=== PATIENT | female | born 1980 | race Caucasian/White ===

== ENCOUNTER 2018-08-06 15:44 | Emergency (ER) | payer MEDICAID ==
[~2018-08-06] VITALS: Wt 55.3 kg
[2018-08-06 15:47] VITALS: BP 125/79; PULSE 78; RESP 18
[2018-08-06] MEDS ORDERED: DOXY100T21 PO (16:12)
[2018-08-06] MEDS ORDERED: IBUP-1542 PO (16:14)
--- NOTE | 2018-08-06 16:18 | ERD ---
ER Documentation Chief Complaint Chief Complaint mid abd+ pelvic pain rad to low back x1d. denies dysuria, no NVD HPI 38-year-old female presents with 1 day history of abdominal pain. She has various pains of different durations in different areas of her abdomen. She has a history of intermittent right upper quadrant abdominal pain with a history of gallstones. She has no fevers, vomiting and denies any significant right upper quadrant abdominal pain now. She has pain with palpable swelling in her umbilicus. She also has some swelling around her scar from a previous or tubal ligation. She denies any vomiting, diarrhea, fevers, additional symptoms. ROS All systems reviewed and are negative except as per history of present illness. Medications Home Meds Active Scripts Ibuprofen* (Motrin*) 600 Mg Tab, 600 MG PO Q6, #20 TAB Prov:MARY BOWSER MD 08/06/18 Doxycycline Monohydrate* (Doxycycline Monohydrate*) 100 Mg Tablet, 100 MG PO BID for 10 Days, TAB Prov:MARY BOWSER MD 08/06/18 PMhx/Soc Medical and Surgical Hx: pt denies Medical Hx Hx Alcohol Use: No Hx Substance Use: No Hx Tobacco Use: No Smoking Status: Never smoker FmHx Family History: No diabetes, No coronary disease, No other Physical Exam Vitals Vital Signs Date Temp Pulse Resp B/P (MAP) Pulse Ox O2 O2 Flow FiO2 Time Delivery Rate 08/06/18 97.5 78 18 125/79 99 15:47 (94) Physical Exam Const: No acute distress Head: Atraumatic Eyes: Normal Conjunctiva ENT: Normal External Ears, Nose and Mouth. Neck: Full range of motion. No meningismus. Resp: Clear to auscultation bilaterally Cardio: Regular rate and rhythm, no murmurs Abd: Soft, non tender, non distended. Normal bowel sounds. There is a small reducible umbilical hernia without erythema, warmth no signs of strangulation or incarceration. On the lower abdomen there is a 1 cm area of mild swelling with appears to be inflamed. There is no appreciable fluctuance, induration or discharge. There is no deep abdominal tenderness, tenderness at McBurney's point, significant Ellis sign, rebound, masses. Skin: No petechiae or rashes Back: No midline or flank tenderness Ext: No cyanosis, or edema Neur: Awake and alert Psych: Normal Mood and Affect Results 24 hrs Current Medications Medications Dose Sig/Rogelio Start Time Status Last (Trade) Ordered Route PRN Stop Time Admin Dose Reason Admin Ibuprofen 600 mg ONCE ONCE 08/06/18 (Motrin) PO 16:30 08/06/18 16:31 Procedures/MDM Patient presents with signs and symptoms of biliary colic which is currently stable and resolved. She has also has signs of a nonincarcerated nonstimulated umbilical hernia. She is a small area of swelling in her lower abdomen consistent with folliculitis but there is no signs of acute abdomen or surgical abdomen. There is no signs of sepsis. She is well-appearing. I am recommending doxycycline for the folliculitis, ibuprofen for pain and primary care follow-up with evaluation by general surgery for evaluation for elective cholecystectomy and/or umbilical hernia repair. The patient was stable with no new complaints during the ER course. Clinically, there is no current evidence to suggest meningitis, sepsis, acute abdomen, pneumonia, stroke, acute coronary syndrome, pulmonary embolism, aortic dissection or any other emergent condition appearing to require further evaluation or hospitalization. Patient counseled regarding my diagnostic impression and care plan. Prior to discharge all questions answered. Pt agrees with treatment plan and understands strict return precautions. Pt is instructed to follow up with primary care provider within 24- 48 hours. Precautionary instructions provided including instructions to return to the ER if not improving or for any worsening or changing symptoms or concerns. Departure Diagnosis: Primary Impression: Gallstones Additional Impressions: Folliculitis Hernia Condition: Stable Patient Instructions: Gallstones, Folliculitis, Hernia (Inguinal, Ventral, Umbilical) Referrals: GUS CANO MD, KAMBIZ M.D. LOMIS, THOMAS MD [facility] YOU HAVE RECEIVED A MEDICAL SCREENING EXAM AND THE RESULTS INDICATE THAT YOU DO NOT HAVE A CONDITION THAT REQUIRES URGENT TREATMENT IN THE EMERGENCY DEPARTMENT. FURTHER EVALUATION AND TREATMENT OF YOUR CONDITION CAN WAIT UNTIL YOU ARE SEEN IN YOUR DOCTORS OFFICE WITHIN THE NEXT 1-2 DAYS. IT IS YOUR RESPONSIBILITY TO MAKE AN APPOINTMENT FOR FOLOW-UP CARE. IF YOU HAVE A PRIMARY DOCTOR --you should call your primary doctor and schedule an appointment IF YOU DO NOT HAVE A PRIMARY DOCTOR YOU CAN CALL OUR PHYSICIAN REFERRAL HOTLINE AT IF YOU CAN NOT AFFORD TO SEE A PHYSICIAN YOU CAN CHOSE FROM THE FOLLOWING [facility] [address] [facility] [address] [facility] [id number] [facility] [address] [facility] [address] [facility]. [facility]. [address] Additional Instructions: We will treat for infection and follicle in the lower abdomen. Recommend general surgery evaluation for pain from hernia and gallstones. Recheck for fevers, vomiting, new worsening symptoms. May need authorization from primary doctor for general surgery evaluation. Recheck in 3-4 days for recheck of possible abscess for possible drainage. MARY BOWSER MD Aug 06, 2018 16:18
[2018-08-06] MEDS ORDERED: IBUPROFEN 600 MG TAB PO ONE (16:30)
== END 2018-08-06 16:44 | disposition home or self-care (01) ==
LOC: FTE 15:44
DX: K80.20 Calculus of gallbladder without cholecystitis without obstruction (principal); L73.9 Follicular disorder, unspecified; K46.9 Unspecified abdominal hernia without obstruction or gangrene
CPT/HCPCS: Z7502; Z7610; 99283

== ENCOUNTER 2019-02-21 10:35 | Emergency (ER) | payer MEDICAID ==
[~2019-02-21] VITALS: Wt 50.0 kg
[~2019-02-21 10:35] MED LIST: DOXY100T21 PO; IBUP-1542 PO; MECL12.574 PO
[2019-02-21 10:37] VITALS: BP 113/59; PULSE 71; RESP 18
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
== END 2019-02-21 12:45 | disposition home or self-care (01) ==
LOC: FTE 10:35
DX: R42 Dizziness and giddiness (principal)
CPT/HCPCS: 70450; Z7502